=== PATIENT | male | born 1990 | race Caucasian/White ===

== ENCOUNTER 2017-02-23 18:47 | Emergency (ER) | payer OTHER ==
[2017-02-23] MEDS: LIDOCAINE 1% (MDV) 20 ML INJ SC (20:33)
[2017-02-23] MEDS: DIPHTH/TET/ACEL PERTUSS (ADULT) 0.5 ML VIAL IM* (20:35)
[2017-02-23] MEDS: LORAZEPAM 1 MG TAB PO (22:03)
== END 2017-02-23 22:38 | disposition home or self-care (01) ==
LOC: FTE 18:47
DX: L02.413 Cutaneous abscess of right upper limb (principal); J45.909 Unspecified asthma, uncomplicated; Z23 Encounter for immunization
CPT/HCPCS: 10060; 90471; 90715; 93005; 99284-25

== ENCOUNTER 2017-02-25 15:46 | Emergency (ER) | payer OTHER ==
[2017-02-25] MEDS: LIDOCAINE 1%/EPI 30 ML INJ INJ (17:21)
== END 2017-02-25 18:40 | disposition home or self-care (01) ==
LOC: E/R 15:46 → FTE 18:40
DX: L02.413 Cutaneous abscess of right upper limb (principal); J45.909 Unspecified asthma, uncomplicated; Z87.891 Personal history of nicotine dependence
CPT/HCPCS: 10060; 99283-25